=== PATIENT | male | born 1950 | race Caucasian/White ===

== ENCOUNTER 2020-08-29 14:56 | Outpatient (REF) | payer MEDICARE, OTHER, SELFPAY | END 2020-08-29 14:57 | disposition home or self-care (01) | LOC: HO.LAB 14:56 | PROVIDERS: Visit Provider Internal Medicine | DX: Z20.828 Contact with and (suspected) exposure to other viral communicable diseases (principal) | CPT/HCPCS: C9803; U0003 ==

== ENCOUNTER 2020-10-18 06:03 | Outpatient (REF) | payer MEDICARE, OTHER, SELFPAY | END 2020-10-18 06:04 | disposition home or self-care (01) | LOC: HO.LAB 06:03 | PROVIDERS: PCP Internal Medicine; Visit Provider Internal Medicine | DX: Z20.822 Contact with and (suspected) exposure to COVID-19 (principal) | CPT/HCPCS: 36415; C9803; U0003 ==

== ENCOUNTER 2021-07-21 09:47 | Outpatient (REF) | payer MEDICARE, OTHER, SELFPAY | END 2021-07-21 09:48 | disposition home or self-care (01) | LOC: HO.LAB 09:47 | PROVIDERS: Visit Provider Internal Medicine | DX: Z20.822 Contact with and (suspected) exposure to COVID-19 (principal) | CPT/HCPCS: C9803; U0003; U0005 ==

== ENCOUNTER 2021-08-11 07:10 | Outpatient (REF) | payer MEDICARE, OTHER, SELFPAY | END 2021-08-11 07:11 | disposition home or self-care (01) | LOC: HO.LAB 07:10 | PROVIDERS: PCP Internal Medicine; Visit Provider Internal Medicine | DX: Z20.822 Contact with and (suspected) exposure to COVID-19 (principal) | CPT/HCPCS: C9803; U0003; U0005 ==

== ENCOUNTER 2021-08-21 07:31 | Outpatient (REF) | payer MEDICARE, OTHER, SELFPAY | END 2021-08-21 07:32 | disposition home or self-care (01) | LOC: HO.LAB 07:31 | PROVIDERS: PCP Internal Medicine; Visit Provider Internal Medicine | DX: Z20.822 Contact with and (suspected) exposure to COVID-19 (principal) | CPT/HCPCS: C9803; U0003; U0005 ==

== ENCOUNTER 2023-07-07 10:27 | Emergency (ER) | payer MEDICARE, OTHER, SELFPAY ==
--- NOTE | ~2023-07-07 | CT_ITS ---
EXAMINATION: CT ABDOMEN AND PELVIS WITH CONTRAST CLINICAL INFORMATION: Rule out obstruction COMPARISON: None available. TECHNIQUE: Multidetector volumetric images were obtained from the superior aspect of the liver through the pubic symphysis following administration 85 mL of Omnipaque 350 intravenous contrast. Sagittal and coronal reformatted images were obtained on the technologist's workstation. Oral contrast: No This CT examination was performed using dose optimization techniques as appropriate, variously including the following: *Automated exposure control *Adjustment of mA and/or kV according to patient size (this includes techniques or standardized protocols for targeted exams where dose is matched to indication/reason for exam; i.e. extremities or head) *Use of iterative reconstruction technique DLP: 518 mGy-cm FINDINGS: LUNG BASES: Bilateral calcified pleural plaques are present. There is a 3 mm nodule in the right middle lobe (4:1). No pleural effusions. LIVER, GALLBLADDER, AND BILIARY TREE: The liver is normal in size, shape, and attenuation. No focal hepatic lesion or biliary ductal dilatation is present. The gallbladder is contracted and contains multiple small gallstones the largest measuring about 5 mm in size. There are no obvious pericholecystic inflammatory changes. PANCREAS: Unremarkable. SPLEEN: Unremarkable. ADRENAL GLANDS: Unremarkable. KIDNEYS AND URETERS: The kidneys are normal in size, shape, and attenuation. No hydronephrosis, hydroureter, or calculi seen. No perinephric stranding. There are bilateral benign Bosniak class I renal cysts noted which require no additional imaging or follow up. No solid renal masses are seen. BLADDER: Unremarkable. GASTROINTESTINAL TRACT: The small and large bowel are unremarkable aside from colonic diverticulosis without diverticulitis. The appendix is unremarkable. ABDOMINAL WALL: No significant hernia is appreciated. LYMPH NODES: Normal. VASCULAR: Unremarkable. PELVIC VISCERA: There is moderate BPH with about a 100 g prostate. Seminal vesicles appear unremarkable. OSSEOUS STRUCTURES: Degenerative changes are present at L5-S1. CT/CT abdomen pelvis w IV con IMPRESSION: 1. No evidence of bowel obstruction. 2. Cholelithiasis without evidence of cholecystitis. 3. 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 4. 3 mm right middle lobe lung nodule. 5. Moderate BPH. 6. Other incidental findings as described above. Fleischner guidelines were followed.
[2023-07-07 10:54] VITALS: BP 132/69; PULSE 50; RESP 16; TEMP 36.1; O2SAT 98; BMI 26.4
--- NOTE | 2023-07-07 10:55 | ED_ITS ---
HPI - General Adult General Chief complaint: General Medical Stated complaint: abd bleeding? Time Seen by Provider: 07/07/23 12:27 Source: patient and family () Mode of arrival: ambulatory Limitations: no limitations History of Present Illness HPI narrative: 73 year old male with pmhx of HDL presents to the ED today for complaint of black hard stools x3 weeks. Patient reports bowel movements every 3-4 days at baseline however has not had a bowel movement in 1 week. denies bright red blood. Has been taking Metamucil without relief. Denies iron supplementation. Reports one dose of Pepto-Bismol 3 weeks ago. admits to having a colonoscopy 1 year ago that was normal. Denies fever, chills, nausea or vomiting, abdominal pain, diarrhea. He is not on anticoagulation. Related Data Allergies Allergy/AdvReac Type Severity Reaction Status Date / Time morphine [MORPHINE] Allergy Unknown VOMITING, Unverified 06/06/20 15:38 Gi upset Review of Systems 2 Review of Systems: Constitutional: No fever, chills, fatigue, night sweats, weight changes ENT/Mouth: No ear pain, hearing loss, nasal congestion, sinus pain, rhinorrhea, sore throat Eyes: No eye pain, swelling, redness, vision changes, discharge Cardio: No chest pain, palpitations, THOMASON, orthopnea, peripheral edema Pulm: No SOB, cough, sputum, wheezing, dyspnea, hemoptysis GI: No nausea, vomiting, hematemesis, abdominal pain, diarrhea, +constipation, No hematochezia, +melena : No irregular bleeding, dysuria, frequency, urgency, hesitancy, hematuria, flank pain, urinary flow changes MSK: No back pain, neck pain, joint pain, myalgias Skin: No lesions, rashes Neuro: No weakness, numbness, paresthesias, LOC, dizziness, headache All other systems reviewed and are negative. [facility] Past Medical History Attestation statement: The following information was validated with the patient. Source: old records reviewed and nursing notes reviewed Social History Social History Advance Directives: Yes Advance Directives Information Provided: No Advance Directives on File: No Physical Exam ED Vital Signs: Vital Signs - 24 hr 07/07/23 10:54 Temperature 96.9 F Pulse Rate 50 Respiratory Rate 16 Blood Pressure 132/69 Pulse Oximetry 98 Oxygen Delivery Method Room Air BMI result Body Mass Index 26.4 Vital signs are stable. Const General: cooperative, healthy appearing, comfortable, no acute distress, alert and awake Nutritional Appearance: average body habitus Orientation/consciousness: patient oriented x3 Limitations: no limitations HENMT Head: Yes normal to inspection Ears: hearing grossly normal bilaterally General nose exam: Normal external nose present Mouth: Normal oral and palatal mucosa present Throat: Yes posterior oropharynx normal, Yes tonsils normal, Yes uvula midline and Yes abnormal tonsil Eyes General: appearance normal, both eyes and all related structures Conjunctivae: conjunctivae normal Sclerae: sclerae normal Pupils: Equal, round and reactive pupils present EOM: EOMs intact bilaterally Neck Neck: Yes normal visual inspection and Yes no lymphadenopathy Resp Effort & Inspection: normal respiratory effort and able to speak in complete sentences Auscultation: clear to auscultation bilaterally, no crackles, no rales, no rhonchi and no wheezes Cardio Rate: regular rate Rhythm: regular rhythm Peripheral pulses: radial pulses present, posterior tibial pulses present and dorsalis pedis present GI Other: + Abdomen is soft, nontender, nondistended, no rebound tenderness or guarding. There are normoactive bowel sounds x4. Rectal exam performed with [facility] present in room to systems applications programming lead. Normal rectal sphincter tone. There are numerous external hemorrhoids without active bleeding or thrombosis. Stool is normal in appearance. There is hard stool within the rectal vault that is palpable with my fingertip however too proximal to disimpact. Guac negative. Inspection: Yes normal to inspection Palpation (GI): Soft to palpation, nontender, no guarding and hepatosplenomegaly present General: Yes no CVA tenderness Back/Spine/Pelvis Back: no CVA tenderness Skin General skin exam: no rashes or lesions noted Neuro General: patient oriented x3, gait normal and moves all extremities Cranial nerves: Yes CN's II-XII intact bilaterally and Yes Equal, round and reactive pupils present Extrem General: Yes normal to inspection and Yes full ROM Course Course Course Narrative: RME - 73 y/o male with history of HLD who presents to the ER for evaluation of hard black stools for 3 weeks. Intermittent lightheadedness and dizziness. No abdominal pain, SOB, chest pain. Not on anticoagulation. Nurse over the phone was worried about internal bleeding. Not on iron, took 1 dose of pepto 3 weeks ago. Plan: basic labs and FROILAN. no need for imaging at this time. Reevaluation(s) Reevaluation #1: 1344-- CBC without leukocytosis or anemia. Chemistry without acute electrolyte abnormalities requiring intervention. Normal renal function. Stool occult negative. Serology is negative for influenza, RSV, COVID. > Patient admits to taking stool bulking laxative over the last few weeks. No bowel movement x1 week > Concern for possible obstruction. Will order CTA abdomen/pelvis with p.o. contrast. 1630-- CT abdomen and pelvis without evidence of bowel obstruction. No evidence of diverticulitis. 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 I discussed workup results with patient. > His current symptoms are consistent with constipation. I advised him to stop the Metamucil as this can worsen his constipation and may cause bowel obstruction. He may take [id number] Colace as needed for constipation. > Regarding incidental imaging findings, patient states that he is aware of the bilateral pleural plaques within his lungs secondary to exposure to asbestos. He was unaware of the lung nodule. I informed him that he will need to follow up with either his primary care doctor or recruitment advertising manager for further imaging and observation. I will provide him with a referral to a recruitment advertising manager for follow- up. I advised patient to call them for an appointment. I provided patient with the printed radiologist's report. > At this time I feel comfortable discharging patient home with [id number] Colace. There is no stool burden noted on CT > enema or digital disimpaction is not warranted. Discussed strict return precautions. All questions answered at this time. Patient agreeable disposition and stable for discharge. Medications Administered Discontinued Medications Generic Name Dose Route Start Last Admin Trade Name Freq PRN Reason Stop Dose Admin Diatrizoate Meglum/Diatrizoate Sod 30 ml 07/07/23 15:49 07/07/23 15:49 Diatrizoate Meglumine, Sodium 30 Ml Solution PO 07/07/23 15:50 30 ml ONCE ONE Administration Iohexol 100 ml 07/07/23 15:48 07/07/23 15:48 Iohexol 350 Mg/Ml 100 Ml Infus..Btl IV 07/07/23 15:49 85 ml ONCE ONE Administration Medical Decision Making Medical Decision Making MDM Narrative: 73 year old male with pmhx of HDL presents to the ED today for complaint of black hard stools x3 weeks. Vital signs are stable. Patient is nontoxic appearing and in no acute distress. RRR. Lungs are clear to auscultation bilaterally. posterior oropharynx without erythema or edema. No tonsillar exudates. Uvula is midline. Controlling secretions. Speaking in complete sentences. Abdomen is soft, nontender, nondistended, no rebound tenderness or guarding. Normoactive bowel sounds x4. Clinical concern for constipation, hemorrhoid, SBO, IBD. Concern for viral syndrome. Unlikely diverticulitis, diverticulosis, ischemic bowel, colonic mass, appendicitis, cholecystitis, acute abdomen. Labs, serology obtained in triage. Plan for FROILAN/ stool occult and re-evaluation. Differential Diagnosis Differential Diagnoses: The differential diagnosis associated with the presentation includes As above. Admission/Observation Not indicated. Lab Data MDM Lab Attestation statement: I reviewed the patient's lab results. As above. 07/07/23 11:03 07/07/23 11:03 Labs: Lab Results 07/07/23 07/07/23 07/07/23 Range/Units 11:03 12:49 12:53 WBC 7.3 (4.8-10.8) X10*3/uL RBC 5.41 (4.60-5.80) X10*6/uL Hgb 16.3 (14.0-18.0) g/dl Hct 48.7 (42.0-52.0) % MCV 90.0 (80.0-98.0) fL MCH 30.1 (27.0-33.0) pg MCHC 33.5 (31.0-36.0) g/dl RDW 13.6 (11.0-16.0) % Plt Count 230 (160-400) X10*3/uL MPV 9.0 L (9.4-12.4) fL Immature Gran % (Auto) 0.3 (0.0-0.4) % Neut % (Auto) 68.2 (45-73) % Lymph % (Auto) 20.0 (20-40) % Bladen % (Auto) 5.5 (2-11) % Eos % (Auto) 5.2 H (0-4) % Baso % (Auto) 0.8 (0-2) % Lymph # (Auto) 1.5 (1.2-4.9) X10*3/uL Bladen # (Auto) 0.4 (0.1-1.2) X10*3/uL Eos # (Auto) 0.4 (0.0-0.4) X10*3/uL Baso # (Auto) 0.1 (0.0-0.2) X10*3/uL Abs Immat Gran (auto) 0.02 (0.00-0.03) X10*3/uL Absolute Neuts (auto) 5.0 (2.0-8.3) x10*3/uL Absolute Nucleated RBC 0.000 (0.0-0.012) X10*3/uL Nucleated RBC % (auto) 0.0 (0.0-0.2) /100WBC Sodium 142 (135-145) mmol/L Potassium 4.8 (3.3-5.1) mmol/L Chloride 105 (96-108) mmol/L Carbon Dioxide 29 (22-29) mmol/L Anion Gap 13 (12-20) BUN 11 (9-16) mg/dL Creatinine 1.24 (0.5-1.4) mg/dL Estim Creat Clear Calc 52.8 Estimated GFR 57 Random Glucose 100 (60-115) mg/dL Calcium 9.7 (8.4-10.2) mg/dL Magnesium 2.2 (1.6-2.6) mg/dL Total Bilirubin 0.6 (0.0-1.0) mg/dL Direct Bilirubin 0.2 (0.0-0.5) mg/dL AST 17 (5-37) U/L ALT 15 (0-40) U/L Alkaline Phosphatase 79 (39-117) U/L Total Protein 6.7 (6.5-8.0) g/dL Albumin 4.2 (3.5-5.0) g/dL Stool Occult Blood NEGATIVE (NEGATIVE) Influenza Type A (PCR) NEGATIVE (Negative) Influenza Type B (PCR) NEGATIVE (Negative) RSV RNA Qual (PCR) NEGATIVE (Negative) SARS-CoV-2 RNA (RT-PCR) NEGATIVE (Negative) Independent Interpretation I performed an independent interpretation of an: CT Scan Interpretation: CT abd/pelvis without obstruction, agree with radiologist's interpretation. Radiology Impression Discussion of test interpretation with radiology: I have reviewed the radiologist's reading. Radiologist Impression: CT abdomen pelvis w IV con IMPRESSION: 1. No evidence of bowel obstruction. 2. Cholelithiasis without evidence of cholecystitis. 3. 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 4. 3 mm right middle lobe lung nodule. 5. Moderate BPH. 6. Other incidental findings as described above. Fleischner guidelines were followed. Independent Historian Clinical information obtained from an independent historian. History obtained from or confirmed by: Spouse External Record Review External record reviewed: Inpatient record Chronic Conditions Patient?s care impacted by: Other (HDL, chronic constipation) Critical Care Time Critical Care Time Critical Care Time: No Discharge Plan Discharge Clinical Impression: Constipation Patient Disposition: Home, Self-Care Instructions: Constipation (ED), High Fiber Diet (ED) Additional Instructions: Your labs were reassuring. Your stool did not have blood in it. This CT of your abdomen and pelvis did not show acute bowel obstruction or stool burden. There were incidental findings of a 3 mm pulmonary lung nodule along with pleural plaques consistent with asbestos exposure. These results were discussed with you. Please follow-up with your primary care provider for further evaluation. Additionally a referral to a recruitment advertising manager has been provided to you. Call them to make an appointment. They will not call you. You have also been provided with the radiologist's read. Stop taking Metamucil. This can worsen your constipation. You may take OTC Colace twice daily for constipation. Additionally a high-fiber diet and hydrate. Return to the emergency department if your symptoms persist or worsen. In the case of an emergency call 911. Referrals: [facility] [place] Pulmonology Services [Provider Group] Rose Mary Lan MD [Primary Care Provider] - Interventions: ED Discharge Assessment Last Done: 07/07/23 17:04 Discharge Date/Time: 07/07/23 17:04
[2023-07-07 11:07] LABS: MANUAL DIFF FLAG NO
[2023-07-07 11:09] LABS: Basophils Absolute Auto 0.1 X10*3/uL (0.0-0.2); Basophils Percent Auto 0.8 % (0-2); Eosinophils Absolute Auto 0.4 X10*3/uL (0.0-0.4); Eosinophils Percent Auto 5.2 % (0-4); Hematocrit 48.7 % (42.0-52.0); Hemoglobin 16.3 g/dl (14.0-18.0); Imm Gran Abs Auto 0.02 X10*3/uL (0.00-0.03); Imm Gran Pct Auto 0.3 % (0.0-0.4); Lymphocytes Absolute Auto 1.5 X10*3/uL (1.2-4.9); Mean Corpuscular HGB Conc 33.5 g/dl (31.0-36.0); Mean Corpuscular Hemoglobin 30.1 pg (27.0-33.0); Monocytes Absolute Auto 0.4 X10*3/uL (0.1-1.2); Monocytes Percent Auto 5.5 % (2-11); Neutrophils Percent Auto 68.2 % (45-73); Platelet Count 230 X10*3/uL (160-400); Red Blood Count 5.41 X10*6/uL (4.60-5.80); Red Cell Distribution Width 13.6 % (11.0-16.0); White Blood Count 7.3 X10*3/uL (4.8-10.8)
[2023-07-07 11:22] LABS: Alanine Aminotransferase 15 U/L (0-40); Albumin Level 4.2 g/dL (3.5-5.0); Alkaline Phosphatase 79 U/L (39-117); Anion Gap 13 (12-20); Aspartate Amino Transferase 17 U/L (5-37); Bilirubin Direct 0.2 mg/dL (0.0-0.5); Bilirubin Total 0.6 mg/dL (0.0-1.0); Blood Urea Nitrogen 11 mg/dL (9-16); Calcium 9.7 mg/dL (8.4-10.2); Carbon Dioxide 29 mmol/L (22-29); Chloride 105 mmol/L (96-108); Creatinine Clr Calc Pharmacy 52.8; Estimated Glomerular Filt Rate 57; Glucose Random 100 mg/dL (60-115); Magnesium 2.2 mg/dL (1.6-2.6); Potassium 4.8 mmol/L (3.3-5.1); Sodium 142 mmol/L (135-145); Total Protein 6.7 g/dL (6.5-8.0)
[2023-07-07 12:58] LABS: OBS1 NEGATIVE (NEGATIVE)
[2023-07-07 12:59] LABS: OBS Int Ctl Valid YES
[2023-07-07 13:39] LABS: Influenza A PCR NEGATIVE (Negative); Influenza B PCR NEGATIVE (Negative); Resp Syncy Virus RNA Qual PCR NEGATIVE (Negative); SARS COV2 PCR INHOUSE NEGATIVE (Negative)
[2023-07-07] MEDS: iohexoL 350 MG/ML 100 ML INFUS..BTL IV (15:48)
[2023-07-07] MEDS: Diatrizoate Meglumine, Sodium 30 ML SOLUTION PO (15:49)
== END 2023-07-07 17:04 | disposition home or self-care (01) ==
PROVIDERS: Physician Assistant; Physician Assistant Medical; Emergency Provider Emergency Medicine Emergency Medical Services; PCP Internal Medicine
DX: K59.00 Constipation, unspecified (principal); Z20.822 Contact with and (suspected) exposure to COVID-19; Z20.828 Contact with and (suspected) exposure to other viral communicable diseases; Z79.899 Other long term (current) drug therapy
CPT/HCPCS: 0241U; 36415; 74177; 80048; 80076; 82272; 83735; 85025; 99282; 99284; Q9967